=== PATIENT | male | born 1985 | race African-American/Black ===

== ENCOUNTER 2023-03-02 12:22 | Emergency (ER) | payer MEDICAID ==
[~2023-03-02] VITALS: Ht 182.9 cm; Wt 64.0 kg
[2023-03-02 12:43] VITALS: BP 108/75; PULSE 104; TEMP 97.4; O2SAT 100
[2023-03-02] MEDS ORDERED: CYCL5TAB MT (13:13)
[2023-03-02] MEDS ORDERED: NAPR-681 MT (13:13)
[2023-03-02] MEDS ORDERED: LIDO700A15 TP (13:13)
[2023-03-02] MEDS ORDERED: KETOROLAC 30MG/ML VIAL IM ONE (13:15)
[2023-03-02] MEDS ORDERED: LIDOCAINE 5% PATCH TOP SCH (13:15)
[2023-03-02] MEDS ORDERED: IBUPROFEN 400MG TABLET PO ONE (13:30)
[2023-03-02 13:56] VITALS: RESP 18
== END 2023-03-02 14:30 | disposition home or self-care (01) ==
LOC: ER 12:22
DX: S20.211A Contusion of right front wall of thorax, initial encounter (principal); S80.02XA Contusion of left knee, initial encounter; S16.1XXA Strain of muscle, fascia and tendon at neck level, initial encounter; X58.XXXA Exposure to other specified factors, initial encounter; Y93.89 Activity, other specified; Y92.89 Other specified places as the place of occurrence of the external cause; Y99.8 Other external cause status
CPT/HCPCS: 71101; 99283